=== PATIENT | male | born 1945 | race Caucasian/White ===

== ENCOUNTER 2019-07-20 14:24 | Emergency (ER) | payer OTHER, BC ==
--- NOTE | 2019-07-20 14:28 | PDOC ---
History of Present Illness - General Chief Complaint: Hematuria Stated Complaint: BLOOD IN URINE - History of Present Illness Initial Comments: The pt is a 73M w/ a history of HTN, pre-DM, gout, HLD, and history of BPH s/p dilation and intermittent hematuria who presents for evaluation of hematuria. He states that generally he will have 1 episode of hematuria +/- clots every few months. However, for the past 2 days every void has had hematuria and some with large amount of clot burden. He is concerned about how much clot he is passing. He reports pain at the meatus 2/2 frequent passage of clot. Denies fevers/chills, lightheadedness/dizziness, testicular pain, back pain, penile discharge. Urology: [facility] 07/20/19 15:01 Past History - Past Medical History Allergies/Adverse Reactions: Allergies Allergy/AdvReac Type Severity Reaction Status Date / Time No Known Allergies Allergy Verified 07/20/19 14:26 Home Medications: Ambulatory Orders Allopurinol 300 mg PO DAILY 07/20/19 Atenolol [Tenormin] 25 mg PO DAILY 07/20/19 Bupropion HCl [Bupropion Xl] 300 mg PO DAILY 07/20/19 Cholecalciferol (Vitamin D3) [Vitamin D3] 2,000 unit PO DAILY 07/20/19 Ciprofloxacin [Cipro -] 500 mg PO Q12H #14 tablet 07/20/19 Finasteride [Proscar] 5 mg PO DAILY 07/20/19 Metformin HCl [Glucophage] 1,500 mg PO HS 07/20/19 Mirabegron [Myrbetriq] 50 mg PO HS 07/20/19 Omeprazole 10 mg PO Q48H 07/20/19 Ramipril 10 mg PO HS 07/20/19 Rosuvastatin [Crestor -] 10 mg PO HS 07/20/19 Tamsulosin HCl [Flomax] 0.4 mg PO HS 07/20/19 Review of Systems - Review of Systems Able to Perform ROS?: Yes Comments:: GENERAL/CONSTITUTIONAL: No fever or chills. No weakness HEAD, EYES, EARS, NOSE AND THROAT: No change in vision. No change in hearing. No sore throat CARDIOVASCULAR: No chest pain or shortness of breath RESPIRATORY: Denies cough, hemoptysis GASTROINTESTINAL: No nausea, vomiting, diarrhea or constipation GENITOURINARY: per HPI MUSCULOSKELETAL: No joint or muscle swelling or pain. No neck or back pain SKIN: No rash NEUROLOGIC: No headache, vertigo, loss of consciousness, or change in strength/ sensation ENDOCRINE: No increased thirst. No abnormal weight change HEMATOLOGIC/LYMPHATIC: No anemia, easy bleeding, or history of blood clots ALLERGIC/IMMUNOLOGIC: No hives or skin allergy 07/20/19 14:27 Is the patient limited Bulgarian proficient: No *Physical Exam - Vital Signs 07/20/19 14:28 - Physical Exam GENERAL: Awake, alert, and oriented to person/place/time, in no acute distress HEAD: No signs of trauma, normoc ephalic, atraumatic EYES: PERRLA, EOMI, sclera anicteric, conjunctiva clear ENT: Hearing grossly normal, nares patent, oropharynx clear without exudates. Moist mucosa LUNGS: No distress, speaks in full sentences, clear to auscultation bilaterally HEART: Regular rate and rhythm, normal S1 and S2, no murmurs appreciated, peripheral pulses normal and equal bilaterally ABDOMEN: Soft, nontender, normoactive bowel sounds. No guarding, no rebound EXTREMITIES: Normal inspection, Normal range of motion, no edema. No clubbing or cyanosis NEUROLOGICAL: Cranial nerves II through XII grossly intact. Normal speech, normal gait, no focal sensorimotor deficits SKIN: Warm, Dry 07/20/19 14:28 ED Treatment Course - LABORATORY CBC & Chemistry Diagram: 07/20/19 16:30 07/20/19 16:30 - RADIOLOGY Radiograph Interpretation: THIS IS A PRELIMINARY REPORT FROM [facility] DATE OF SERVICE: 2019-07-20 16:27:52 EXAM: CT ABDOMEN AND PELVIS WITHOUT CONTRAST IMPRESSION: Limited evaluation of solid organs and vasculature without IV contrast. 1.2 x 3.7 x 3.3 cm hyperdensity along the posterior wall of the urinary bladder which represent malignancy until proven otherwise. Alternatively this may represent blood clot. Recommend cystoscopy 07/20/19 18:15 Medical Decision Making - Medical Decision Making The pt is a 73M w/ a history of HTN, pre-DM, gout, HLD, and history of BPH s/p dilation and intermittent hematuria who presents for evaluation 2 days of hematuria. Urology: [facility] ED Course UA, UCx, CMP, CBC POCUS w/ large left renal cyst, urinary retention, and clot noted in bladder Will insert three way 07/20/19 16:04 Page placed to x2, awaiting call back CT A&P read pending No leukocytosis Lytes wnl No VEGA LFTs wnl 07/20/19 17:[address] prince placed Will give Ciprofloxacin and Rx for same for 7 days Pt to f/u with Urology, Dr. Owen, on Monday Discharge instructions and return precautions given Patient in agreement and verbalized understanding Dispo: Home 07/20/19 18:08 Discharge - Discharge Information Problems reviewed: Yes Clinical Impression/Diagnosis: Hematuria Qualifiers: Hematuria type: gross Qualified Code(s): R31.0 - Gross hematuria Condition: Good Disposition: HOME - Admission No - Additional Discharge Information Prescriptions: Cephalexin Monohydrate [Keflex -] 500 mg PO BID #14 capsule - Follow up/Referral Referrals: Dinesh Owen [Primary Care Provider] - - Patient Discharge Instructions Patient Printed Discharge Instructions: How to Care for Your Prince Catheter -- Male, DI for Hematuria Additional Instructions: You were seen in the Emergency Department for evaluation of blood in your urine. You were found to have urinary retention and a prince was placed. You were prescribed Ciprofloxacin, take twice a day for 7 days. Follow up with your Urologist Monday (in 2 days). Review the handout provided at discharge. For pain you may take Tylenol 650mg every 6 hours and Ibuprofen 600mg every 6-8 hours, alternating them each time. Return to the Emergency Department if you develop fevers, you stop producing urine into the bag, chest pain, trouble breathing, worsening pain, change in sensation, worsening symptoms, or any new/concerning symptoms. - Post Discharge Activity Work/Back to School Note: Back to Work
--- NOTE | 2019-07-20 14:50 | PDOC ---
Attending Attestation - Resident Resident Name: DignaEvangelist medel - ED Attending Attestation I have performed the following: I have examined & evaluated the patient, The case was reviewed & discussed with the resident, I agree w/resident's findings & plan, Exceptions are as noted - HPI HPI: 07/20/19 16:04 73yo male with hx of hematuria presents for eval of hematuria x 3 days. Started night. Passing clots which causes penile pain while passing the clots and urinary freq. Pt denies dysuria before the hematuria started or since. States he follows with Dr. Owen who has performed multiple cysto in the past without finding a reason for his hematuria. States he urinates and instantly feels the urge to urinate again. Pt denies f/c. No lightheaded or dizziness. No cp/sob. No abd pain. - Physicial Exam PE: 07/20/19 16:06 Gen: aaox3, nad, ambulates with a steady gait heart: +s1s2 reg lungs: cta b/l abd: soft, suprapubic ttp, suprapubic palpation of a distended bladder, no cva ttp ext: no c/c/e - Medical Decision Making 07/20/19 16:06 a/p: 73yo male with hematuria and passing clots -will send labs, ua, ucx -bedside ultrasound shows L large renal simple cyst, distended bladder with post void volume of 305 with clot in the bladder -will send for ct given large cyst, hematuria -will place prince catheter -will discuss with urology -resident placed call to dr. owen 07/20/19 17:54 catheter in ua neg for infection, only blood labs reviewed pt with initially hematuria once prince went in, now with clear urine no cbi needed 07/20/19 18:01 will start abx 2nd to manipulation with the catheter and have the patient follow up with urology on Monday07/20/19 18:06 hyperdensity urinary bladder that will need follow up and b/l renal cysts stable for dc to home
[2019-07-20 15:06] VITALS: BP 148/65; PULSE 73; TEMP 98.6; BMI 28.7
[2019-07-20] MEDS ORDERED: LIDOCAINE HCL 2% JELLY 10 ML CARTRIDGE ONE (16:43)
[2019-07-20 17:04] LABS: BASO % 0.3 % (0-2.0); EOS % 2.2 % (0-4.5); HEMATOCRIT 41.5 % (35.4-49); LYMPH % 14.2 % (8-40); MCH 26.2 pg (25.7-33.7); MCHC 31.4 g/dl (32.0-35.9); MEAN CELL VOLUME 83.5 fl (80-96); MEAN PLT VOLUME 9.7 fl (7.5-11.1); MONO % 7.4 % (3.8-10.2); NEUT % 75.9 % (42.8-82.8); PLATELET COUNT 210 K/MM3 (134-434); RBC 4.97 M/mm3 (4.00-5.60); RDW 15.7 % (11.9-15.9); WHITE BLOOD COUNT 10.1 K/mm3 (4.0-10.8)
[2019-07-20] MEDS ORDERED: morphine CARPU-JECT 4 MG/1 ML DISP.SYRIN IVPUSH ONE (17:05)
[2019-07-20 17:10] LABS: INR 1.14 (0.82-1.09); PROTHROMBIN TIME (PATIENT) 12.7 SEC (10.2-13.0)
[2019-07-20 17:11] LABS: CALCIUM 9.2 mg/dl (8.5-10); POTASSIUM 4.2 mmol/L (3.5-5.1); TOT PROT 6.8 g/dl (6.4-8.2)
[2019-07-20] MEDS ORDERED: CEPHALEXIN MONOHYDRATE 500 MG CAPSULE (UD) PO ONE (18:00)
[2019-07-20] MEDS ORDERED: CEPHALEXIN MONOHYDRATE 500 MG CAPSULE (UD) ONE (18:09)
[2019-07-20] MEDS ORDERED: CIPROFLOXACIN 500 MG TABLET (RESTRICTED TO ID) PO ONE (18:11)
[2019-07-20] MEDS ORDERED: CIPROFLOXACIN 250 MG TABLET (RESTRICTED TO ID) PO ONE (18:16)
== END 2019-07-20 20:05 | disposition home or self-care (01) ==
LOC: FER 14:24
DX: R31.0 Gross hematuria (principal); I10 Essential (primary) hypertension; R73.03 Prediabetes; M10.9 Gout, unspecified; N40.0 Benign prostatic hyperplasia without lower urinary tract symptoms
CPT/HCPCS: 36415; 74176-TC; 76775; 80053; 81003; 81015; 85025; 85610; 85730; 87086; 99283-25